=== PATIENT | female | born 1995 | race Hispanic/Latino ===

== ENCOUNTER 2017-04-01 17:26 | Emergency (ER) | payer SELFPAY ==
[2017-04-01] MEDS ORDERED: diphenhydrAMINE 50 MG/ML VIAL ONE (17:54)
[2017-04-01] MEDS ORDERED: Ketorolac Tromethamine 30 MG/ML VIAL ONE (17:54)
[2017-04-01] MEDS ORDERED: Metoclopramide HCl 10 MG/2 ML VIAL ONE (17:54)
--- NOTE | 2017-04-01 19:15 | CT ---
CT HEAD NONCONTRAST: Date: 04/01/17 CLINICAL HISTORY: Emergency exam, migraine headache. FINDINGS: No evidence of intracranial hemorrhage, mass effect, midline shift, or ventriculomegaly. The imaged p aranasal sinuses reveal no acute fluid levels. IMPRESSION: No acute intracranial hemorrhage or mass effect. POS: [facility]
== END 2017-04-01 19:47 | disposition home or self-care (01) ==
LOC: ERS 17:26
DX: R51 Headache (principal)
CPT/HCPCS: 70450; 96365; 96375; J1200; J1885; J2765

== ENCOUNTER 2017-11-28 11:17 | Emergency (ER) | payer SELFPAY ==
[2017-11-28] MEDS ORDERED: diphenhydrAMINE 50 MG/ML VIAL ONE (11:51)
[2017-11-28] MEDS ORDERED: Metoclopramide HCl 10 MG/2 ML VIAL ONE (11:51)
[2017-11-28] MEDS ORDERED: Acetaminophen 500 MG TAB ONE (11:51)
== END 2017-11-28 14:12 | disposition home or self-care (01) ==
LOC: ERS 11:17
DX: R51 Headache (principal)
CPT/HCPCS: 96361; 96374; 96375; J1200; J2765